=== PATIENT | female | born 2000 | race Caucasian/White ===

== ENCOUNTER 2022-06-18 11:08 | Emergency (ER) | payer SELFPAY ==
[~2022-06-18] VITALS: Ht 165.1 cm; Wt 70.0 kg
[2022-06-18] MEDS ORDERED: ACETAMINOPHEN 325MG TABLET PO ONE (11:45)
[2022-06-18 12:15] LABS: CLARITY URINE TURBID (CLEAR); COLOR URINE YELLOW (YELLOW); KETONES URINE TRACE (NEGATIVE); LEUKOCYTE ESTERASE URINE 3+ (NEGATIVE); NITRITE URINE POSITIVE (NEGATIVE); OCCULT BLOOD URINE 2+ (NEGATIVE); PH URINE 6.5 (4.5-8.0); PROTEIN URINE 2+ (NEGATIVE); SPECIFIC GRAVITY URINE 1.011 (1.005-1.030)
[2022-06-18] MEDS ORDERED: NITR100C PO (12:24)
[2022-06-18] MEDS ORDERED: TOPUD PO (12:24)
[2022-06-18 12:44] VITALS: BP 127/66
== END 2022-06-18 12:46 | disposition home or self-care (01) ==
LOC: EDBD 11:08 → ER 11:32
DX: N39.0 Urinary tract infection, site not specified (principal); B96.20 Unspecified Escherichia coli [E. coli] as the cause of diseases classified elsewhere; Z20.822 Contact with and (suspected) exposure to COVID-19
CPT/HCPCS: 81003; 81025; 87077; 87086; 87186; 87426; 99283; C9803